=== PATIENT | female | born 1985 | race American Indian/Alaskan Native ===

== ENCOUNTER 2017-07-30 18:21 | Emergency (ER) | payer OTHER ==
[2017-07-30] MEDS ORDERED: SUBLIMAZE IV ONE (19:15)
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
[2017-07-30 19:37] LABS: Basophils % (Auto) 1.3 % (0.0-1.8); Hematocrit 38.7 % (30.3-42.9); Hemoglobin 12.9 gm/dl (10.1-14.3); Mean Corpuscular HGB Conc 33 % (30-34); Mean Corpuscular Hemoglobin 28 pg (28-32); Mean Corpuscular Volume 85 fl (79-97); Platelet Count 301 K/mm3 (140-440); Red Blood Count 4.58 M/mm3 (3.65-5.03); Red Cell Distribution Width 13.5 % (13.2-15.2); White Blood Count 5.4 K/mm3 (4.5-11.0)
[2017-07-30 19:51] LABS: Alanine Aminotransferase 22 units/L (7-56); Albumin 4.3 g/dL (3.9-5); Albumin/Globulin Ratio 1.4 %; Alkaline Phosphatase 72 units/L (35-129); Anion Gap 17 mmol/L; Blood Urea Nitrogen 15 mg/dL (7-17); Carbon Dioxide 23 mmol/L (22-30); Chloride 103.5 mmol/L (98-107); Glucose 83 mg/dL (65-100); Potassium 3.8 mmol/L (3.6-5.0); Sodium 140 mmol/L (137-145); Total Protein 7.3 g/dL (6.3-8.2)
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
[2017-07-30 21:01] VITALS: BP 110/78
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
[2017-07-30 22:30] LABS: Bacteria,Urine 1+ /HPF (Negative); Bilirubin,Urine NEG (Negative); Blood,Urine NEG (Negative); Ketones,Urine 20 mg/dL (Negative); Leukocyte Esterase,Urine NEG (Negative); Mucus,Urine 3+ /HPF; Nitrite,Urine NEG (Negative); Urobilinogen,Urine < 2.0 mg/dL (<2.0)
== END 2017-07-30 21:27 | disposition home or self-care (01) ==
LOC: ED 18:21
DX: M62.830 Muscle spasm of back (principal); M54.2 Cervicalgia; M54.5 Low back pain; V43.92XA Unspecified car occupant injured in collision with other type car in traffic accident, initial encounter; Y93.89 Activity, other specified; Y92.89 Other specified places as the place of occurrence of the external cause; Y99.8 Other external cause status
CPT/HCPCS: 36415; 70450; 71010; 72072; 72100; 72125; 80053; 81001; 84702; 85025; 96374; 99285; J3010